=== PATIENT | male | born 2000 | race Caucasian/White ===

== ENCOUNTER 2021-11-02 19:54 | Emergency (ER) | payer OTHER, SELFPAY ==
[2021-11-02 20:18] VITALS: BP 112/66; PULSE 116; RESP 20; O2SAT 98; BMI 21.5
[2021-11-02] MEDS: IBUPROFEN 400 MG TABLET 800 MG PO (21:01)
[2021-11-02] MEDS: OxyCODONE/APAP 5-325 TABLET 2 TAB PO (21:02)
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
[2021-11-02] MEDS: BACITRACIN OINTMENT BULK TUBE 1 APPLIC TOPICAL (23:09)
--- NOTE | 2021-11-02 23:46 | ED.NURSE ---
Pt's wounds dressed with bacitracin, adaptic, telfa, and kerlex/coban. Back wounds also dressed with abdominal pads.
== END 2021-11-02 23:45 | disposition home or self-care (01) ==
PROVIDERS: Emergency Provider Family Medicine
DX: S30.810A Abrasion of lower back and pelvis, initial encounter (principal); S20.419A Abrasion of unspecified back wall of thorax, initial encounter; S60.512A Abrasion of left hand, initial encounter; S60.511A Abrasion of right hand, initial encounter; V28.0XXA Motorcycle driver injured in noncollision transport accident in nontraffic accident, initial encounter
CPT/HCPCS: 99283; 99284; A9270

== ENCOUNTER 2021-11-07 20:04 | Emergency (ER) | payer OTHER, SELFPAY ==
[2021-11-07 20:47] VITALS: BP 122/70; PULSE 89; RESP 16; TEMP 36.4; O2SAT 99; BMI 22.4
[2021-11-07 21:00] VITALS: PULSE 80
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
[2021-11-07] MEDS: LIDOCAINE/PRILOCAINE 2.5-2.5% CREAM 1 APPLIC TOPICAL (21:21)
== END 2021-11-07 21:23 | disposition home or self-care (01) ==
LOC: ED 21:04
PROVIDERS: Emergency Provider Family Medicine
DX: S60.512A Abrasion of left hand, initial encounter (principal); S60.511A Abrasion of right hand, initial encounter; S80.812A Abrasion, left lower leg, initial encounter; S80.811A Abrasion, right lower leg, initial encounter; V29.3XXA Motorcycle rider (driver) (passenger) injured in unspecified nontraffic accident, initial encounter
CPT/HCPCS: 99282; 99283